=== PATIENT | female | born 1980 | race Caucasian/White ===

== ENCOUNTER 2023-10-09 09:41 | Emergency (ER) | payer OTHER, SELFPAY ==
[2023-10-09 09:42] VITALS: BP 118/79
--- NOTE | 2023-10-09 09:55 | ED.GENMED ---
Addendum entered and electronically signed by Yonatan Lopez PA-C 10/11/23 07:06:
Urine culture greater than 100,000 colony-forming units of E. coli. On Keflex. Sensitivities pending
Original Note:
History of Present Illness
<Yamile Arguelles PA-C - Last Filed: 10/09/23 19:17>
General
Chief Complaint: Urinary Symptoms
Source: patient
Exam Limitations: none
Time Seen by Provider: 10/09/23 09:51
Nursing documentation reviewed up to this point in time: agreed with
Travel History
Have you had any contact with someone who has COVID-19?: No
Do you have any symptoms of coronavirus? Fever > 100 degrees, chills, cough, shortness of breath, sore throat, loss of taste or smell, muscle aches, or headache?: No
History of Present Illness
History of Present Illness:
43-year-old female presenting to the emergency department with bilateral flank pain and dark urine for the past 2 days. Patient states that she is never had anything like this before. The pain has been increasingly getting worse as the days
progressed. Patient states that the pain is constant, but does relieved with lying down. Patient denies any nausea, vomiting. Patient denies any abdominal pain, pelvic pain. Patient states that she will moments where she will become diaphoretic
but denies any fevers or chills at home. Patient also notes general malaise. Patient's last menstrual period was couple days ago. Patient has denies any vaginal discharge. Patient has a past abdominal surgical history of and bariatric
surgery. Patient denies dysuria, urinary frequency, urinary hesitency.
Review of Systems
<Yamile Arguelles PA-C - Last Filed: 10/09/23 19:17>
Review of Systems
All Other Systems: ROS reviewed and negative except as documented in HPI and ROS
Phy Exam
<Yamile Arguelles PA-C - Last Filed: 10/09/23 19:17>
Physical Exam
Physical Exam:
Vitals: VSS, patient is afebrile.
General: Patient is well appearing and in no acute distress; non-toxic
Skin: Warm and dry, no rashes or lesions
Head: Normocephalic, atraumatic
Eyes: Sclera non-icteric. EOMs intact.
Cardiac: Regular rate
Peripheral Vascular: No lower extremity edema
Pulm: Normal respiratory effort
Abdomen: RUQ tenderness to palpation. No rebound tenderness. No palpable masses. No ecchymosis.
Neuro: CN II-XII intact, no focal neurologic deficits.
Psychiatric: Appropriate mood and affect.
Course
<Yamile Arguelles PA-C - Last Filed: 10/09/23 19:17>
Orders/Labs/Results
Orders:
Orders
10/09/23 10:03
Urinalysis Reflex To Culture Urgent
Date Specimen was Collected: 10/09/23
Time Specimen was Collected: 09:49
Urine Microscopic Reflex Cult Urgent
Urine Culture Urgent
EMILEE Source: U
Specimen Description:
Date Specimen was Collected: 10/09/23
Time Specimen was Collected: 09:49
10/09/23 10:43
CPK [Creatine Phosphokinase] Urgent
Complete Blood Count/With Diff Urgent
Comprehensive Metabolic Panel Urgent
HCG, Serum Qualitative Screen Urgent
10/09/23 11:01
CT Abd/pel Without Iv Or Oral Urgent
Comment:
Reason For Exam: bilateral flank pain
10/09/23 11:14
Add On- LAB Urgent
Tests Added?: hcg qualitative
10/09/23 13:07
Acetaminophen [Tylenol] 650 mg PO NOW STA
10/09/23 13:21
0.9% Sodium Chloride 1000 ml [Nss] 1,000 ml IV BOLUS
10/09/23 13:25
CefTRIAXone [Rocephin] 1,000 mg IV NOW STA
Phenazopyridine HCl [Pyridium] 100 mg PO NOW STA
Abnormal Lab Results
10/09/23 10/09/23
10:03 10:43
RBC 4.06 L 10^6/uL
(4.20-5.40)
Hct 35.5 L %
(37.0-47.0)
Absolute Lymphs (auto) 0.8 L 10^3/uL
(1.2-3.4)
Absolute Monos (auto) 0.7 H 10^3/uL
(0.1-0.6)
Neutrophils % 77.2 H %
(42.2-75.2)
Lymphocytes % 11.4 L %
(20.5-51.1)
Monocytes % 10.0 H %
(1.7-9.3)
Sodium 134 L mmol/L
(135-145)
Ur Occult Blood Reflex 3+ A
(Negative)
Urine Nitrite (Reflex) Positive A
(Negative)
Urine Bilirubin 1+ A
(Negative)
Leukocyte Esterase Rfl 2+ A
(Negative)
Urine RBC 11-15 A /HPF
(0-2)
Urine WBC (Reflex) 60-70 A /HPF
(0-5)
Urine Bacteria (Reflex) Moderate A
(Negative)
Urine Albumin (Reflex) 1+ A
(Neg - Trace)
10/09/23 10:43
10/09/23 10:43
Vital Signs
Initial and Last Documented VS:
Initial Vital Signs
Temp Pulse Resp BP Pulse Ox
98.7 F 94 18 118/79 97
10/09/23 09:42 10/09/23 09:42 10/09/23 09:42 10/09/23 09:42 10/09/23 09:42
Last Documented Vital Signs
Temp Pulse Resp BP Pulse Ox
98.7 F 95 18 117/53 99
10/09/23 09:42 10/09/23 13:55 10/09/23 13:55 10/09/23 13:55 10/09/23 13:55
<Darrius Naqvi, DO - Last Filed: 10/09/23 14:25>
Orders/Labs/Results
Orders:
Orders
10/09/23 10:03
Urinalysis Reflex To Culture Urgent
Date Specimen was Collected: 10/09/23
Time Specimen was Collected: 09:49
Urine Microscopic Reflex Cult Urgent
Urine Culture Urgent
EMILEE Source: U
Specimen Description:
Date Specimen was Collected: 10/09/23
Time Specimen was Collected: 09:49
10/09/23 10:43
CPK [Creatine Phosphokinase] Urgent
Complete Blood Count/With Diff Urgent
Comprehensive Metabolic Panel Urgent
HCG, Serum Qualitative Screen Urgent
10/09/23 11:01
CT Abd/pel Without Iv Or Oral Urgent
Comment:
Reason For Exam: bilateral flank pain
10/09/23 11:14
Add On- LAB Urgent
Tests Added?: hcg qualitative
10/09/23 13:07
Acetaminophen [Tylenol] 650 mg PO NOW STA
10/09/23 13:21
0.9% Sodium Chloride 1000 ml [Nss] 1,000 ml IV BOLUS
10/09/23 13:25
CefTRIAXone [Rocephin] 1,000 mg IV NOW STA
Phenazopyridine HCl [Pyridium] 100 mg PO NOW STA
Abnormal Lab Results
10/09/23 10/09/23
10:03 10:43
RBC 4.06 L 10^6/uL
(4.20-5.40)
Hct 35.5 L %
(37.0-47.0)
Absolute Lymphs (auto) 0.8 L 10^3/uL
(1.2-3.4)
Absolute Monos (auto) 0.7 H 10^3/uL
(0.1-0.6)
Neutrophils % 77.2 H %
(42.2-75.2)
Lymphocytes % 11.4 L %
(20.5-51.1)
Monocytes % 10.0 H %
(1.7-9.3)
Sodium 134 L mmol/L
(135-145)
Ur Occult Blood Reflex 3+ A
(Negative)
Urine Nitrite (Reflex) Positive A
(Negative)
Urine Bilirubin 1+ A
(Negative)
Leukocyte Esterase Rfl 2+ A
(Negative)
Urine RBC 11-15 A /HPF
(0-2)
Urine WBC (Reflex) 60-70 A /HPF
(0-5)
Urine Bacteria (Reflex) Moderate A
(Negative)
Urine Albumin (Reflex) 1+ A
(Neg - Trace)
10/09/23 10:43
10/09/23 10:43
Vital Signs
Initial and Last Documented VS:
Initial Vital Signs
Temp Pulse Resp BP Pulse Ox
98.7 F 94 18 118/79 97
10/09/23 09:42 10/09/23 09:42 10/09/23 09:42 10/09/23 09:42 10/09/23 09:42
Last Documented Vital Signs
Temp Pulse Resp BP Pulse Ox
98.7 F 95 18 117/53 99
10/09/23 09:42 10/09/23 13:55 10/09/23 13:55 10/09/23 13:55 10/09/23 13:55
<Yamile Arguelles PA-C - Last Filed: 10/09/23 19:17>
MDM/Problems Addressed
Differential Diagnosis Includes:
Differentials include nephrolithiasis, pyelonephritis, cholecystitis, choledocholithiasis, rhabdomyolysis,
MDM/Problems Addressed:
Dark urine, flank pain
Chronic conditions affecting care:
History of bariatric surgery
Acute Exacerbation and/or Progression of Chronic Illness:
n/a
<Yamile Arguelles PA-C - Last Filed: 10/09/23 19:17>
*Pulse Oximetry
Patient hypoxic: no
*Critical Care Note
Total Time (30-74mins, 75-104mins- exclusive of procedures): Not Applicable
Data Reviewed
Review of Other/Old Records Reveals: Records (Previous ER visits in [facility] to review) and Discharge Summary (No discharge summary to [facility] to review)
Source: patient
<Yamile Arguelles PA-C - Last Filed: 10/09/23 19:17>
Patient Management
Escalation/DeEscalation of care consider admission/obs:
43-year-old female presenting to the emergency department with bilateral flank pain and dark urine for the past 2 days. Patient was relatively comfortable at this time, no pain control given initially. I was notified by nursing staff about
[facility] through patient's stay in the ER that patient started to develop an acute onset of severe pelvic pain. Patient was treated with Tylenol and Prodium which completely resolved her pain. On physical exam, patient does have bilateral CVA
tenderness, does have a positive urinalysis. Patient CT exam was negative for an obstructed, infected stone. Did show thickening of the bladder. Patient stable for discharge with a course of Keflex. Patient in agreement with plan, medically
stable for discharge.
ED Attending Note
<Yamile Arguelles PA-C - Last Filed: 10/09/23 19:17>
-
Portions of this chart may have been created with voice recognition software.� Occasional wrong word or��sound alike� substitutions may have occurred due to the inherent limitations of voice recognition software.
<Darrius Naqvi, DO - Last Filed: 10/09/23 14:25>
ED Attending Note
Patient seen and examined by attending physician: Yes
I performed a history and physical exam of patient and discussed management with resident, I reviewed resident's note and agree with documented findings and plan of care.: Yes
ED Attending Note:
I have reviewed and agree with history and treatment plan by Yamile Arguelles. My exam revealed 43-year-old female with soft abdomen, mild suprapubic tenderness, no rebound or guarding. Exam and CT scan consistent with cystitis. Initial dose of
Rocephin given, with Keflex. Follow-up with primary care. Return precautions given.
Discharge Plan
Departure
Patient Disposition: Home (Routine Discharge)
Date of Disposition: 10/09/23
Time of Disposition: 14:30
Patient with high blood pressure during this ER visit?: No
Condition: Good
Discharge Problem:
Acute cystitis
Instructions: Urinary Tract Infection, Adult (DC), Blood in the Urine (Hematuria), Adult (DC)
Prescriptions:
New
cephalexin 500 mg capsule
500 mg PO BID 10 Days Qty: 20 0RF
Referrals:
Bnoita Valentin CRNP [Family Provider] -
Activity Restrictions/Additional Instructions:
We have sent an antibiotic called Keflex to your pharmacy. Please take 1 tablet twice daily for 10 days.
Please continue Tylenol as needed for pain control.
Please return to the emergency department should you experience any fevers or chills, acute worsening of your pain, shortness of breath, chest pain, yellowing of the skin or eyes, or any concerning signs or symptoms.
Interventions
Interventions:
*Risk Screen - Suicide Last Done: 10/09/23 09:59
*Neglect/Abuse Screening Last Done: 10/09/23 09:59
*Nursing Disposition Last Done: 10/09/23 15:00
ED-Female Genitourinary Assessment Last Done: 10/09/23 10:06
Discharge Date and Time
Discharge Date/Time: 10/09/23 15:01
Print Language: ITALIAN
[2023-10-09 09:59] VITALS: BMI 33.6
[2023-10-09 10:49] LABS: Urine Albumin 1+ (Neg - Trace); Urine Bilirubin 1+ (Negative); Urine Character Slightly Cloudy (Clear); Urine Color Yellow; Urine Glucose Negative (Negative); Urine Ketone Negative (Negative); Urine Leukocyte 2+ (Negative); Urine Nitrite Positive (Negative); Urine Occult Blood 3+ (Negative); Urine Urobilinogen Negative (Neg - 1+)
[2023-10-09 10:57] LABS: % Basophils 0.3 % (0-2); % Immature Granulocytes 0.1 % (0-0.5); % Lymphocytes 11.4 % (20.5-51.1); % Neutrophils 77.2 % (42.2-75.2); Absolute Eosinophils 0.1 10^3/uL (0-0.7); Absolute Lymphocytes 0.8 10^3/uL (1.2-3.4); Absolute Monocytes 0.7 10^3/uL (0.1-0.6); Absolute Neutrophils 5.2 10^3/uL (1.4-6.5); Hematocrit 35.5 % (37.0-47.0); Hemoglobin 12.6 g/dL (12.0-16.0); Mean Corp Hgb Conc. 35.5 g/dL (33.0-37.0); Mean Corpuscular Volume 87.4 fL (81.0-99.0); Mean Platelet Volume 10.4 fL (7.4-10.4); Nucleated Red Blood Cells % 0 %; Platelet Count 178 10^3/uL (130-400); Red Blood Cell Count 4.06 10^6/uL (4.20-5.40); Red Cell Dist. Width 12.2 % (11.5-14.5); White Blood Cell Count 6.7 10^3/uL (4.8-10.8)
[2023-10-09 11:06] LABS: ALT (SGPT) 13 U/L (0-35); AST (SGOT) 16 U/L (14-36); Alkaline Phosphatase 53 U/L (38-126); Blood Urea Nitrogen 16 mg/dl (7-17); Calcium 9.4 mg/dl (8.4-10.2); Carbon Dioxide 27 mmol/L (22-30); Chloride 105 mmol/L (98-107); Creatine Phosphokinase 55 U/L (30-135); Estimated Creatinine Clearance 103 ml/min; Glucose 93 mg/dl (70-99); Potassium 3.8 mmol/L (3.5-5.1); Sodium 134 mmol/L (135-145); Total Bilirubin 0.5 mg/dl (0.2-1.3); Total Protein 6.3 g/dl (6.3-8.2); eGFR > 60.00
[2023-10-09 11:22] LABS: Urine Bacteria Moderate (Negative); Urine Squamous Cell 26-30 /LPF (Few); Urine White Cell 60-70 /HPF (0-5)
[2023-10-09 11:28] LABS: HCG, Serum Qualitative Screen Negative
[2023-10-09] MEDS: NSS 1000 IV (13:23)
[2023-10-09] MEDS: TYLENOL 650 MG PO (13:23)
[2023-10-09] MEDS: ROCEPHIN 1000 MG IV (13:38)
[2023-10-09] MEDS: Pyridium 100 MG PO (13:38)
[2023-10-09 13:55] VITALS: BP 117/53
--- NOTE | 2023-10-12 14:18 | ED.ADDNOTE ---
ED Addendum
ED Addendum
ED Addendum Note:
Patient was placed Keflex however sensitivities state inconclusive with cefazolin .
will switch to Bactrim 1 tablet p.o. twice daily for the 10 days. Patient denies any fever she is nauseous but not vomiting. She has an appointment family doctor tomorrow. Discussed close outpatient follow-up and hard to return if any worsening
of symptoms or Bactrim sent to her pharmacy.
== END 2023-10-09 15:01 | disposition home or self-care (01) ==
LOC: EMR 09:41
PROVIDERS: Physician Assistant; EMERGENCY PHYSICIAN Emergency Medicine; FAMILY PHYSICIAN Nurse Practitioner Family
DX: N30.00 Acute cystitis without hematuria (principal); R53.81 Other malaise
CPT/HCPCS: 99284; 96374; 96361; 74176; 80053; 81003; 81015; 82550; 84703; 85025; 87086; 87088; 87186

== ENCOUNTER → 2024-02-17 09:17 | Outpatient (REF) | payer OTHER, SELFPAY | LOC: RAD 09:17 | PROVIDERS: ATTENDING PHYSICIAN Nurse Practitioner Adult Health; FAMILY PHYSICIAN Nurse Practitioner Family | DX: Z90.3 Acquired absence of stomach [part of] (principal); R79.89 Other specified abnormal findings of blood chemistry; E55.9 Vitamin D deficiency, unspecified; R63.5 Abnormal weight gain; R12 Heartburn | CPT/HCPCS: 74246 ==

== ENCOUNTER → 2024-11-08 08:09 | Outpatient (REF) | payer OTHER, SELFPAY | LOC: HWRAD 08:09 | PROVIDERS: ATTENDING PHYSICIAN Nurse Practitioner Family; FAMILY PHYSICIAN Nurse Practitioner Family | DX: R10.2 Pelvic and perineal pain (principal) | CPT/HCPCS: 76830; 76856 ==